=== PATIENT | male | born 1945 | race Caucasian/White ===

== ENCOUNTER 2019-07-03 05:14 | Inpatient (IN) | payer MEDICARE, MEDICAID ==
[2019-06-27 15:08] LABS: BASOPHILS # (AUTO) 0.1 X10'3 (0-0.2); BASOPHILS % (AUTO) 1.2 % (0-1); EOSINOPHILS # (AUTO) 0.4 X10'3 (0-0.9); EOSINOPHILS % (AUTO) 4.7 % (0-6); LYMPHOCYTES # (AUTO) 2.6 X10'3 (1.1-4.8); MEAN CORPUSCULAR HEMOGLOBIN 28.9 PG (27.0-31.0); MEAN CORPUSCULAR HGB CONC 33.9 g/dL (33.0-36.5); MEAN CORPUSCULAR VOLUME 85.2 FL (78-98); MEAN PLATELET VOLUME 9.3 FL (7.4-10.4); MONOCYTES # (AUTO) 0.6 X10'3 (0-0.9); MONOCYTES % (AUTO) 8.2 % (2-12); NEUTROPHILS # (AUTO) 4.1 X10'3 (1.8-7.7); NEUTROPHILS % (AUTO) 52.9 % (42-75); PRE OP HEMATOCRIT 36.7 % (42.0-52.0); PRE OP HEMOGLOBIN 12.4 g/dL (14.0-17.9); PRE OP PLATELET COUNT 206 X10'3 (140-440); RED BLOOD COUNT 4.31 X10'6 (4.70-6.10); RED CELL DISTRIBUTION WIDTH 14.1 % (11.5-14.5)
[2019-06-27 15:16] LABS: HEMOGLOBIN A1C 7.3 % (4.5-6.2)
[2019-06-27 15:39] LABS: ALBUMIN 3.7 G/DL (3.4-5.0); ALBUMIN/GLOBULIN RATIO 1.1 (1.1-1.5); ALKALINE PHOSPHATASE 76 IU/L (46-116); BLOOD UREA NITROGEN 16 MG/DL (7-18); BUN/CREATININE RATIO 18.2 (5.4-32.0); CALCIUM 8.6 MG/DL (8.5-10.1); CHLORIDE 106 MMOL/L (99-107); CREATININE 0.88 MG/DL (0.60-1.10); PRE OP ALT 39 U/L (30-65); PRE OP ANION GAP 7 (8-16); PRE OP AST 24 U/L (10-37); PRE OP BILIRUB, TOTAL 0.3 MG/DL (0.0-1.0); PRE OP GLUCOSE 147 MG/DL (70-104); PRE OP POTASSIUM 4.1 MMOL/L (3.4-5.1); PRE OP SODIUM 142 MMOL/L (135-145); TOTAL CARBON DIOXIDE 29.1 MMOL/L (24-32); TOTAL PROTEIN 7.1 G/DL (6.4-8.2); eGFR 85 ML/MIN
[2019-07-03] VITALS (18 sets, daily range): BP systolic 129–163; BP diastolic 64–96
[~2019-07-03] VITALS: Ht 180.3 cm; Wt 90.7 kg
[~2019-07-03 05:14] MED LIST: ASPI-611 PO; DIPH25CA83 PO; INSU200I4 SQ; NOVLG; RAMI10CA69 PO; ROSU5TAB12 PO; TRAM50TA2 PO
[2019-07-03] MEDS ORDERED: LIDOcaine 1% (10mg/ml) 2ml vial ONE (05:55)
[2019-07-03] MEDS: vancomycin inj 1,500 MG in normal saline 300ml IV soln IV ONE ×2 (06:03→06:25)
[2019-07-03] MEDS ORDERED: famotidine 20mg tablet PO ONE (06:30)
[2019-07-03] MEDS ORDERED: cefazolin/dext.iso 2gm/50ml 50 ML IV ONE (06:30)
[2019-07-03] MEDS ORDERED: ringers solution, lacted 1,000 ML IV SCH ×2 (06:30→09:46)
[2019-07-03] MEDS ORDERED: ketorolac trometh. 30mg/ml inj. ONE (06:40)
[2019-07-03] MEDS ORDERED: ROPIVAcaine 0.5% (5mg/ml) 30ml vial ONE ×2 (06:41→09:18)
[2019-07-03] MEDS ORDERED: tranexamic acid inj. 1,000 MG in normal saline 100ml IV soln 100 ML IV ONE ×4 (07:25)
[2019-07-03] MEDS ORDERED: sevoflurane 250ml liquid IH ONE (08:52)
[2019-07-03] MEDS ORDERED: MIDAZolam 5mg/5ml vial ONE (08:58)
[2019-07-03] MEDS ORDERED: fentaNYL/PF 50MCG/1 ML 2ML syringe ONE (08:58)
[2019-07-03] MEDS ORDERED: LIDOcaine 2% (20mg/ml) 5ml vial ONE (09:18)
[2019-07-03] MEDS ORDERED: propofol inj 20 ML IV ONE (09:18)
[2019-07-03] MEDS ORDERED: dexamethasone sod phosphate 4mg/ml inj. ONE (09:18)
[2019-07-03] MEDS ORDERED: ondansetron/PF 4mg/2ml inj ONE (09:35)
[2019-07-03] MEDS ORDERED: rocuronium 10mg/ml inj IV ONE (09:36)
[2019-07-03] MEDS ORDERED: morphine 4 MG/ML inj SYRINge IV PRN ×2 (09:50)
[2019-07-03] MEDS ORDERED: proCHLORperazine 10 MG/2 ml inj IV PRN (09:50)
[2019-07-03] MEDS ORDERED: ondansetron/PF 4mg/2ml inj IV PRN ×2 (09:50→12:00)
[2019-07-03] MEDS ORDERED: meperidine/PF 25mg/ml syringe IV PRN ×3 (09:50)
[2019-07-03] MEDS ORDERED: ROPIVAcaine 0.2%/PF PAIN PUMP 400 ML IJ SCH (10:05)
--- NOTE | 2019-07-03 11:48 | NUR ---
Received from OR via , accompanied by Anesthesiologist DR GUO and report given by Anesthesiolgist. AWAKENS TO VOICE. VITALS STABLE. DRESSING DI. JOSE DE JESUS PAIN. RUE IN SIMPLE SLING.
[2019-07-03] MEDS ORDERED: bisacodyl 10mg suppository rectal RC PRN (12:00)
[2019-07-03] MEDS ORDERED: HYDROmorphone inj. 0.5 MG/0.5 ML DISP.SYRIN IV PRN (12:00)
[2019-07-03] MEDS ORDERED: magnesium hydroxide 30ml (MOM) UD suspension PO PRN (12:00)
[2019-07-03] MEDS ORDERED: acetaminophen 325mg tablet PO PRN (12:00)
[2019-07-03] MEDS ORDERED: oxyCODONE IR 5mg (immed. release) tablet PO PRN (12:00)
[2019-07-03] MEDS ORDERED: HYDROmorphone 1 mg/ml syringe IV PRN (12:00)
[2019-07-03] MEDS ORDERED: diphenhydrAMINE 25mg capsule PO PRN ×2 (12:00)
--- NOTE | 2019-07-03 12:58 | NUR ---
Report called to receiving nurse. Transferred via BED Belongings . Special Issues communicated to receiving nurse. AWAKE AND ORIENTED. VITALS STABLE. DRESSING DI. JOSE DE JESUS PAIN. TO ORTHO [id number] AT THIS TIME.
[2019-07-03] MEDS ORDERED: traMADol 50MG tablet PO PRN (13:00)
[2019-07-03] MEDS ORDERED: tranexamic acid inj. 900 MG in normal saline 100ml IV soln 100 ML IV ONE (15:30)
[2019-07-03] MEDS: ceFAZolin 1GM/D5W- ADD-VANTAGE 50 ML IV SCH ×2 (15:54→23:41)
[2019-07-03] MEDS: potassium cl 20mEq in 1/2 NS 1,000 ML IV SCH ×2 (15:56→20:24)
[2019-07-03] MEDS: acetaminophen 325mg tablet PO SCH ×2 (15:56→20:00)
[2019-07-03] MEDS ORDERED: vancomycin/NS 1 GM ADD-VANTAGE 250 ML IV SCH (20:00)
[2019-07-03] MEDS ORDERED: lisinopril 10 MG tablet PO SCH (21:00)
[2019-07-03] MEDS ORDERED: sennosides 8.6mg tablet PO SCH (21:00)
[2019-07-03] MEDS ORDERED: atorvastatin 20mg tablet PO SCH (21:00)
[2019-07-03] MEDS ORDERED: diphenhydrAMINE 25mg capsule PO SCH (21:00)
[2019-07-04] MEDS: acetaminophen 325mg tablet PO SCH ×2 (02:00→08:00)
[2019-07-04 02:21] VITALS: BP 156/75
[2019-07-04] MEDS: oxyCODONE IR 5mg (immed. release) tablet PO PRN ×2 (03:27→08:02)
[2019-07-04] MEDS: potassium cl 20mEq in 1/2 NS 1,000 ML IV SCH (04:24)
--- NOTE | 2019-07-04 05:00 | NUR ---
pt out to nurses station without sling. "I don't want it. It's fine this way. I've had 8 shoulder surgeries"
--- NOTE | 2019-07-04 05:01 | NUR ---
pts insulin placed back into locked omni
--- NOTE | 2019-07-04 05:55 | NUR ---
pt requested humalog and daily insulin. checked glucose level, pt self administered insulin.
[2019-07-04 06:11] LABS: BASOPHILS # (AUTO) 0.1 X10'3 (0-0.2); BASOPHILS % (AUTO) 0.4 % (0-1); EOSINOPHILS % (AUTO) 0.2 % (0-6); HEMATOCRIT 33.7 % (42.0-52.0); HEMOGLOBIN 11.4 g/dl (14.0-17.9); LYMPHOCYTES # (AUTO) 2.5 X10'3 (1.1-4.8); LYMPHOCYTES % (AUTO) 18.5 % (21-51); MEAN CORPUSCULAR HEMOGLOBIN 28.7 PG (27.0-31.0); MEAN CORPUSCULAR HGB CONC 33.8 g/dL (33.0-36.5); MEAN CORPUSCULAR VOLUME 84.8 FL (78-98); MEAN PLATELET VOLUME 9.6 FL (7.4-10.4); MONOCYTES # (AUTO) 1.2 X10'3 (0-0.9); MONOCYTES % (AUTO) 8.7 % (2-12); NEUTROPHILS # (AUTO) 9.9 X10'3 (1.8-7.7); NEUTROPHILS % (AUTO) 72.2 % (42-75); PLATELET COUNT 173 X10'3 (140-440); RED BLOOD COUNT 3.98 X10'6 (4.70-6.10); WHITE BLOOD COUNT 13.6 X10'3 (4.5-11.0)
[2019-07-04 06:20] LABS: ANION GAP 11 (8-16); CHLORIDE 105 MMOL/L (99-107); SODIUM 141 MMOL/L (135-145); TOTAL CARBON DIOXIDE 25.4 MMOL/L (24-32)
--- NOTE | 2019-07-04 06:40 | NUR ---
reported to days. noted pt working with PT this am, anticipates going home this am.
[2019-07-04] MEDS ORDERED: insulin glargine (Lantus) pen - multi-dose SQ SCH (08:00)
--- NOTE | 2019-07-04 08:05 | NUR ---
patient administered own humalog insulin
[2019-07-04] MEDS ORDERED: aspirin 325mg tablet PO SCH (08:30)
[2019-07-04] MEDS ORDERED: celeCOXIB 100mg capsule PO SCH (20:00)
[2019-07-05] MEDS ORDERED: acetaminophen 325mg tablet PO PRN (12:00)
== END 2019-07-04 10:35 | disposition home or self-care (01) | DRG 483 ==
LOC: PAS IN 05:14 → EDSTATUS 08:30 → ORTHO 4S 13:00
PROVIDERS: ADMIT Orthopaedic Surgery; ATTEND Orthopaedic Surgery
PROC: 3E0T3BZ Introduction of Anesthetic Agent into Peripheral Nerves and Plexi, Percutaneous Approach (ICD-10-PCS; 2019-07-03)
PROC: 0RRJ0JZ Replacement of Right Shoulder Joint with Synthetic Substitute, Open Approach (ICD-10-PCS; principal; 2019-07-03 08:52)
DX: M19.011 Primary osteoarthritis, right shoulder (principal); D62 Acute posthemorrhagic anemia; M75.121 Complete rotator cuff tear or rupture of right shoulder, not specified as traumatic; M25.511 Pain in right shoulder; E11.9 Type 2 diabetes mellitus without complications; M54.5 Low back pain; M54.2 Cervicalgia; E78.5 Hyperlipidemia, unspecified; G89.29 Other chronic pain; I10 Essential (primary) hypertension; M65.812 Other synovitis and tenosynovitis, left shoulder; M54.9 Dorsalgia, unspecified; Z80.9 Family history of malignant neoplasm, unspecified; Z82.41 Family history of sudden cardiac death; Z87.891 Personal history of nicotine dependence; Z72.89 Other problems related to lifestyle; Z79.4 Long term (current) use of insulin; Z79.899 Other long term (current) drug therapy; Z79.82 Long term (current) use of aspirin
CPT/HCPCS: 36415; 80051; 80053; 82948; 83036; 85025; 87081; 97110; 97161; 97530; A4565; A4618; A7000; A9272; C1713; C1776; G0378; J0690; J1100; J1815; J1885; J2001; J2250; J2405; J2704; J2795; J3010; J3370; J3480; J7120; Q0163

== ENCOUNTER 2025-05-07 11:37 | Day surgery (SDC) | payer MEDICARE, MEDICAID ==
[2025-05-03 08:39] LABS: MEAN PLATELET VOLUME 8.7 FL (7.4-10.4); RED CELL DISTRIBUTION WIDTH 14.5 % (11.5-14.5)
[2025-05-03 09:00] LABS: APTT 28 SECONDS (22-32); INR 1.0 INR
[2025-05-03 09:03] LABS: CHOL/HDL RATIO 3.3 (0.00-4.99); CREATININE 0.89 MG/DL (0.60-1.10); LDL CHOLESTEROL 112 MG/DL (50-100); TOTAL CARBON DIOXIDE 29.2 MMOL/L (24-32); eGFR 83 ML/MIN
[~2025-05-07] VITALS: Ht 174 cm; Wt 80.3 kg
[~2025-05-07 11:37] MED LIST changes: -ASPI-611 PO; -DIPH25CA83 PO; -INSU200I4 SQ; +OXYC1TAB17 PO; -RAMI10CA69 PO; +ROSU20TA98 PO; -ROSU5TAB12 PO; -TRAM50TA2 PO
[2025-05-07 12:06] VITALS: BP 181/81; PULSE 82; RESP 16; TEMP 98.5; O2SAT 97
--- NOTE | 2025-05-07 12:12 | ELECTROCARDIOGRAPH REPORT ---
[facility] Test Date: 2025-05-07 Test Time: 12:06:51 Pat Name: GEOVANNI RANGEL Department: PRE/OP CARDIOLOGY [id number] Room: Gender: M University Administrator: KATINA : 1945 Requested By: MILES ROLDAN Order Number: [id number] Reading MD: Dr. BHUPENDRA Kelly Measurements Intervals [place] Rate: 81 P: 60 NM: 182 QRS: -15 QRSD: 95 T: 9 QT: 398 QTc: 462 Interpretive Statements Sinus rhythm Probable left atrial enlargement Inferior infarct, old Electronically Signed On 05-08-2025 19:12:[address] BHUPENDRA Kelly Please click the below link to view image of tracing.
[2025-05-07] MEDS ORDERED: INSU300I3 SQ (12:39)
[2025-05-07] MEDS ORDERED: OXYC-150 PO (12:39)
[2025-05-07 13:00] VITALS: RESP 16; O2SAT 97
[2025-05-07] MEDS ORDERED: midazolam 1 mg/ML 2ml injection ONE (14:07)
[2025-05-07] MEDS ORDERED: LIDOcaine 1% (10mg/ml) 2ml vial ONE (14:07)
[2025-05-07] MEDS ORDERED: fentaNYL/PF 50MCG/1 ML 2ML syringe ONE (14:07)
[2025-05-07] MEDS ORDERED: heparin 1,000unit/ml 10ml vial 10 ML ONE (14:07)
[2025-05-07] MEDS ORDERED: verapamil 2.5 mg/ml inj IV ONE (14:07)
[2025-05-07] MEDS ORDERED: nitroGLYCERIN 500mcg/5mL D5W 5 ML IV ONE (14:08)
[2025-05-07 15:15] VITALS: BP 157/83; PULSE 86; RESP 15; O2SAT 94
[2025-05-07 15:30] VITALS: BP 181/92; PULSE 88; RESP 14; O2SAT 95
[2025-05-07 15:45] VITALS: BP 181/92; PULSE 88; RESP 14; O2SAT 95
[2025-05-07 16:00] VITALS: BP 172/86; PULSE 90; RESP 17; O2SAT 96
--- NOTE | 2025-05-11 21:43 | CARDIOLOGY REPORT ---
DATE OF SERVICE: 05/07/2025 DICTATING PHYSICIAN: David Mendez MD CARDIAC CATHETERIZATION REPORT DATE OF STUDY: 05/07/2025. PROCEDURES: * Selective coronary angiography. * Conscious sedation for 15 minutes. INDICATION: Aortic stenosis. PHYSICIAN: David Mendez MD DESCRIPTION OF PROCEDURE: After informed consent was obtained, the patient was brought to the lab where he was prepped in the usual sterile fashion. Over a J-wire, TIG catheter was advanced into the ascending aorta. The wire removed. The catheter manipulated to engage the right and left coronary arteries and selective coronary angiography performed. HEMODYNAMICS: For the patient's hemodynamics, please refer to the event log. Left ventriculography was not performed. FINDINGS: The left main coronary artery is a medium caliber vessel with mild luminal irregularities. The left anterior descending coronary artery is also medium caliber vessel with mild luminal irregularities. The circumflex coronary artery is a large dominant vessel with a possible 50-60% ostial stenosis. The right coronary artery is a small nondominant vessel with mild luminal irregularities. IMPRESSION: * Mild luminal irregularities of the LAD. * Possible 50-60% ostial stenosis of a dominant circumflex coronary artery. * Mild luminal irregularities of a nondominant RCA. RECOMMENDATION: Transcatheter aortic valve replacement. David Mendez MD TID: [id number] RECEIPT: [id number] LUCRECIA/LUIGI
== END 2025-05-07 16:30 | disposition home or self-care (01) ==
LOC: SSTAY O 11:37
PROVIDERS: ATTEND Student in an Organized Health Care Education/Training Program
DX: I35.0 Nonrheumatic aortic (valve) stenosis (principal); I25.10 Atherosclerotic heart disease of native coronary artery without angina pectoris; I25.2 Old myocardial infarction; I10 Essential (primary) hypertension; E11.9 Type 2 diabetes mellitus without complications; E78.00 Pure hypercholesterolemia, unspecified; I42.0 Dilated cardiomyopathy; Z79.82 Long term (current) use of aspirin; Z79.899 Other long term (current) drug therapy
CPT/HCPCS: 36415; 80048; 80061; 82948; 83695; 85025; 85610; 85730; 93005; 93454; A6402; C1894; J1644; J2003; J2250; J3010; J3490; J7030; Q0163; Q9967; Z7610; 99152; A6449; C1769

== ENCOUNTER 2025-05-24 10:31 | Outpatient (CLI) | payer MEDICARE, MEDICAID ==
[~2025-05-24 10:31] MED LIST changes: +INSU300I3 SQ; +IODIXANOL 320 MG/ML INFUS..BTL 100ML IV ONE; +OXYC-150 PO
[2025-05-24 11:21] LABS: MEAN PLATELET VOLUME 9.9 FL (7.4-10.4); RED CELL DISTRIBUTION WIDTH 14.4 % (11.5-14.5)
[2025-05-24 11:38] LABS: APTT 25 SECONDS (22-32); INR 1.0 INR
[2025-05-24 11:46] LABS: CREATININE 1.13 MG/DL (0.60-1.10); PRO BRAIN NATRIURETIC PEPTIDE 178 PG/ML (0-450); TOTAL CARBON DIOXIDE 28.9 MMOL/L (24-32); eGFR 63 ML/MIN
--- NOTE | 2025-05-24 11:56 | RADIOLOGY REPORT ---
DI CHEST,TWO VIEWS CLINICAL HISTORY: TAVR OB COMPARISON: None TECHNIQUE: Frontal and lateral view of the chest was obtained FINDINGS: Lines and Tubes: None Lungs: No focal consolidation. Pleura: No effusion. No pneumothorax. Cardiomediastinal contours: Unremarkable Bones: Right shoulder arthroplasty IMPRESSION: No acute cardiopulmonary disease.
--- NOTE | 2025-05-24 21:22 | RADIOLOGY REPORT ---
EXAM: CT CTA TAVR CLINICAL HISTORY: AV STENOSIS,SOB,CAROTID STENOSIS TECHNIQUE: Arterial phase spiral acquisitions obtained through the chest, abdomen, and pelvis. Multip lanar reconstructions were generated. Using automated software tools and 3-D reconstructions, imaging analysis of the aortic valve was performed. Dose reduction effected using automated exposure contro l and iterative reconstruction technique. 2-D and 3-D reformations are generated at a separate [facility] workstation. All CT scans at this facility are performed using dose modulation techniques as appropriate to a perf ormed exam including the following: automated exposure control with adjustment of the mA and/or kV a ccording to patient size. RADIATION DOSE: CTDI vol: 66 mGy DLP: 2332 mGy-cm Dose information generated by the CT scanner is available in PACS. IV Contrast: 125 cc visipaque 320 COMPARISON: None FINDINGS: Aortic valve annulus diameter: 28.0 x 25.5 mm. Aortic valve area: 5.07 cm2. Perimeter: 81.7 mm. Diameter through left coronary sinus: 35.5 mm. Diameter through right coronary sinus: 36.9 mm. Diameter through the noncoronary sinus: 35.6 mm. Diameter at the sinotubular junction: 25.8 mm. Distance from the right coronary sinus to right coronary orifice: 17.7 mm. Distance from left coronary sinus to left coronary orifice: 18.5 mm. Diameter of ascending aorta: 31.9 mm. Diameter of abdominal aorta: 9.64 mm. Diameter of the right common iliac artery: 6.33 mm. Diameter of the right external iliac artery: 6.81 mm. Diameter of the right common femoral artery: 3.04 mm. Diameter of left common iliac artery: 6.79 mm. Diameter of the left external iliac artery: 6.36 mm. Diameter of the left common femoral artery: 3.85 mm. 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 There is subpleural reticulation diffusely. There is no bronchiectasis or honeycombing. No discrete pulmonary nodule or mass is identified. There is no pneu mothorax. There is frothy debris within the distal esophagus. The distal esophagus appears thickened . The heart is within normal limits for size. There is no pericardial effusion. There is no evidence of thoracic or abdominal aortic dissection. There is moderate atherosclerotic disease there is no l arge central pulmonary embolism. No pathologic lymphadenopathy is identified in the chest by size cri teria. Spleen: Unremarkable. Liver: The liver is normal in size and contour. The portal vein is patent. Gallbladder/bile ducts: There is mild intrahepatic biliary dilation. Pancreas: There is a 1.1 cm cystic lesion in the head of the pancreas near the uncinate process. The pancreatic duct is not dilated. Adrenal glands: Unremarkable. Kidneys and ureters: Unremarkable. Urinary bladder: Unremarkable. Reproductive structures: The prostate is enlarged. The seminal vesicles are unremarkable. Peritoneum/gastrointestinal: The colonic stool burden is [id number]. The appendix is normal. T here is no distention or thickening of the small bowel. Lymph nodes: Unremarkable. Bones: There is severe chronic compression deformity of T12 with bone cement consistent with vertebra l augmentation. No acute fracture is identified. Soft tissues: Unremarkable. IMPRESSION: TAVR MEASUREMENTS ABOVE. Frothy material in the distal esophagus and distal esophageal thickening. Correlate clinically for p ossible gastroesophageal reflux. Aspiration precautions are recommended. Cystic 1.1 cm lesion in the head of the pancreas near the uncinate process. 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 Further evaluation with MRI of the pancreas is recommended.
== END 2025-05-24 23:59 | disposition home or self-care (01) ==
LOC: RAD 10:31
PROVIDERS: ATTEND Internal Medicine Cardiovascular Disease
DX: J43.2 Centrilobular emphysema (principal); I35.0 Nonrheumatic aortic (valve) stenosis; R06.02 Shortness of breath; I65.29 Occlusion and stenosis of unspecified carotid artery; K86.2 Cyst of pancreas; K22.89 Other specified disease of esophagus; I70.8 Atherosclerosis of other arteries; N40.0 Benign prostatic hyperplasia without lower urinary tract symptoms; R19.5 Other fecal abnormalities; M43.8X4 Other specified deforming dorsopathies, thoracic region; Z96.611 Presence of right artificial shoulder joint
CPT/HCPCS: 71046; 71275; 74174; 75572; 80053; 83880; 85025; 85610; 85730; Q9967